=== PATIENT | female | born 1985 | race Two or more races ===

== ENCOUNTER 2019-09-15 09:23 | Day surgery (SDC) | payer MEDICAID ==
[~2019-09-15] VITALS: Ht 167.6 cm; Wt 95.5 kg
[2019-09-15 09:40] VITALS: BP 121/76
[2019-09-15] MEDS ORDERED: FAMO-49 PO (09:42)
[2019-09-15] MEDS ORDERED: SUCR1TAB PO (09:42)
[2019-09-15] MEDS ORDERED: ONDA8TAB6 PO (09:43)
[2019-09-15] MEDS ORDERED: PSEU-259 PO (09:44)
[2019-09-15] MEDS ORDERED: OMEP40CA13 PO (09:44)
[2019-09-15] MEDS ORDERED: [UNRECOGNIZED DRUG - CODE] PO (09:45)
[2019-09-15] MEDS ORDERED: DIPH25CA46 PO (09:47)
[2019-09-15] MEDS ORDERED: ERGO400C (09:47)
[2019-09-15] MEDS ORDERED: CALC-522 PO (09:51)
[2019-09-15] MEDS ORDERED: ECHI400C17 PO (09:51)
[2019-09-15] MEDS ORDERED: MYO INOSITOL PO (09:52)
[2019-09-15] MEDS ORDERED: LIDOcaine Viscous 15ml cup ONE (09:59)
[2019-09-15] MEDS ORDERED: fentaNYL/PF 50MCG/1 ML 2ML syringe ONE (09:59)
[2019-09-15] MEDS ORDERED: MIDAZolam 5mg/5ml vial ONE ×2 (09:59)
[2019-09-15 11:19] VITALS: BP 113/76
[2019-09-15 11:29] VITALS: BP 126/75
[2019-09-15 11:39] VITALS: BP 116/80
[2019-09-15 11:49] VITALS: BP 123/77
[2019-09-15 11:59] VITALS: BP 120/78
== END 2019-09-15 12:00 | disposition home or self-care (01) ==
LOC: GI LAB 09:23
PROVIDERS: ATTEND Internal Medicine Gastroenterology
DX: K21.0 Gastro-esophageal reflux disease with esophagitis (principal); K29.50 Unspecified chronic gastritis without bleeding
CPT/HCPCS: 43239; 99152; J2250; J3010; J7040; A4620